=== PATIENT | female | born 1950 | race Caucasian/White ===

== ENCOUNTER → 2024-11-27 | Outpatient (CLI) | payer MEDICARE | LOC: M RAD 10:31 | PROVIDERS: ATTEND Otolaryngology | DX: J33.0 Polyp of nasal cavity (principal) ==

== ENCOUNTER 2025-03-12 08:12 | Day surgery (SDC) | payer MEDICARE ==
[~2025-03-12] VITALS: Ht 154.9 cm; Wt 53.9 kg
[~2025-03-12 08:12] MED LIST: ATOR40TA75 PO; CALC600T60 PO; MULTTAB61 PO; OMEG10002 PO; VITA500C24 PO
[2025-03-12] MEDS ORDERED: LR 1,000 ML IV SCH ×2 (08:25→12:50)
[2025-03-12] MEDS ORDERED: MIDAZOLAM INJ 2 MG/2 ML VIAL As Ordered ONE (08:39)
[2025-03-12] MEDS ORDERED: ACETAMINOPHEN 1000MG/100ML IV BAG As Ordered ONE (08:40)
[2025-03-12] MEDS ORDERED: dexAMETHasone 4 MG/ML 1 ML VIAL As Ordered ONE (09:04)
[2025-03-12] MEDS ORDERED: ONDANSETRON 4MG 2ML VIAL As Ordered ONE (09:42)
[2025-03-12] MEDS ORDERED: SUGAMMADEX SODIUM 200 MG/2 ML VIAL As Ordered ONE (09:43)
[2025-03-12] MEDS ORDERED: PHENYLephrine 500MCG 5ML (100MCG/ML) SYRINGE As Ordered ONE (10:22)
[2025-03-12] MEDS ORDERED: PHENYLEPHRINE 10MG/ML 1ML VIAL As Ordered ONE (10:33)
[2025-03-12] MEDS: LIDOCAINE W/EPINEPHrine 1% 20 ML VIAL As Ordered ONE (10:35)
[2025-03-12] MEDS: OXYMETAZOLINE 0.05% NASAL SPRAY As Ordered ONE (10:35)
[2025-03-12] MEDS: COCAINE 4% 4 ML NASAL SOLUTION BTL As Ordered ONE (10:50)
[2025-03-12] MEDS ORDERED: ONDANSETRON 4MG 2ML VIAL IV PRN (12:50)
[2025-03-12] MEDS ORDERED: HYDROMORPHONE HCL 0.5 MG/0.5 ML SYRINGE IV PRN (12:50)
[2025-03-12 14:00] VITALS: BP 141/80; TEMP 98.7; O2SAT 95
== END 2025-03-12 14:11 | disposition home or self-care (01) ==
LOC: M SDC 08:12
PROVIDERS: ATTEND Otolaryngology
DX: J32.4 Chronic pansinusitis (principal); J33.8 Other polyp of sinus; E78.00 Pure hypercholesterolemia, unspecified; Z79.899 Other long term (current) drug therapy
CPT/HCPCS: 31259; 31267; 31276; 61782; 88305; 93005; A6024; C9143; J0131; J1100; J2250; J2371; J2405; J3010